=== PATIENT | female | born 1945 | race Caucasian/White ===

== ENCOUNTER 2017-12-20 18:20 | Observation (INO) | payer OTHER ==
[~2017-12-20] VITALS: Ht 162.6 cm; Wt 64.9 kg
[2017-12-20] VITALS (16 sets, daily range): BP systolic 123–175; BP diastolic 68–83; PULSE 60–84; RESP 16–20; TEMP 97.4; O2SAT 93–100
[~2017-12-20 18:20] MED LIST: AMLO10 PO; AMLO5TAB96 PO; ASPI325T PO; COZA50TA PO; FLUO40CA PO; OMEP20TA PO; PRAV40 PO; Z.0.WALKERFRONT; ZOLP1TAB32 PO
--- NOTE | 2017-12-20 18:44 | PD ---
HPI Chief Complaint: Chest Pain Time Seen by Provider: 18:27 Travel History International Travel<30 days: Yes Contact w/Intl Traveler<30days: Yes Name of Country Traveled to: [place] Traveled to known affect area: Yes History of Present Illness HPI 72yo F with PMH of HTN here with c/o chest pain that started yesterday. Said she was sitting in front of computer when she had left sided chest pain that was associated with diaphoresis and dizziness. Said she felt to lay on the couch since she was feeling dizzy and passed out on the couch for a little bit. Said she went to sleep and woke up fine with no pain. Then at 5:30pm today, she again started having left sided chest pain that radiates to proximal left arm so decided to come. This time she did not have diaphoresis or dizziness. Denies any sob, fever, cough, n/v, abdominal pain, focal weakness or numbness. Pt had she had a cardiac cath many years ago and never had a stent. Has not had chest pain for years and does not have active directory specialist or recent stress test. PFSH Past Medical History Arthritis: Yes Anxiety: Yes Depression: Yes Cancer: No Cardiovascular Problems: Yes Diabetes: No Endocrine: No Gastrointestinal Disorders: Yes (GERD, REFLUX) GERD: Yes Genitourinary: No Hepatitis: No Hiatal Hernia: Yes Hypertension: Yes Immune Disorder: No Musculoskeletal: No Neurologic: No Psychiatric: No Reproductive: No Respiratory: Yes (SPOT ON HA. LUNG) Thyroid Disease: No Tetanus Vaccination: > 5 Years ?: Not Past Surgical History Abdominal Surgery: Yes (APPENDECTOMY) AICD: No Eye Surgery: Yes (DETACHED RETINA SX X6) Gynecologic Surgery: Yes (ECTOPIC PREG, ABD. HYSTERECTOMY,) Hysterectomy: Yes Joint Replacement: No Oral Surgery: Yes (TONSILLECTOMY) Pacemaker: No Other Surgery: Yes (RIGHT SHOULDER REPLACEMENT) Social History Alcohol Use: Yes (SOCIAL) Tobacco Use: No Substance Use: Yes (MEDICAL MARIJUANA) Allergies-Medications (Allergen,Severity, Reaction): Coded Allergies: latex (Unverified Allergy, Intermediate, REDNESS, ITCHING, RASH,BURNING, ) codeine (Unverified Adverse Reaction, Severe, SEVERE NAUSEA, 04/20/17) Reported Meds & Prescriptions Reported Meds & Active Scripts Active Review of Systems Except as stated in HPI: all other systems reviewed are Neg Physical Exam Narrative GENERAL: 72yo F in mild distress. SKIN: Focused skin assessment warm/dry. HEAD: Atraumatic. Normocephalic. EYES: Pupils equal and round. No scleral icterus. No injection or drainage. ENT: No nasal bleeding or discharge. Mucous membranes pink and moist. NECK: Trachea midline. No JVD. CARDIOVASCULAR: Regular rate and rhythm. No murmur appreciated. RESPIRATORY: No accessory muscle use. Clear to auscultation. Breath sounds equal bilaterally. GASTROINTESTINAL: Abdomen soft, non-tender, nondistended. MUSCULOSKELETAL: No obvious deformities. No clubbing. No cyanosis. No edema. NEUROLOGICAL: Awake and alert. No obvious cranial nerve deficits. Motor grossly within normal limits. Normal speech. PSYCHIATRIC: Appropriate mood and affect; insight and judgment normal. Data Data Last Documented VS Vital Signs Date Time Temp Pulse Resp B/P (MAP) Pulse Ox O2 Delivery O2 Flow Rate FiO2 12/20/17 20:15 62 16 126/69 (88) 96 Room Air 12/20/17 18:22 97.4 Orders Orders Basic Metabolic Panel (Bmp) (12/20/17 18:42) Complete Blood Count With Diff (12/20/17 18:42) Magnesium (Mg) (12/20/17 18:42) Prothrombin Time / Inr (Pt) (12/20/17 18:42) Act Partial Throm Time (Ptt) (12/20/17 18:42) Troponin I (12/20/17 18:42) Chest, Single Ap (12/20/17 18:42) Aspirin (Aspirin) (12/20/17 18:45) Nitroglycerin Sl (Nitrostat Sl) (12/20/17 18:45) Place In Observation (12/20/17 20:20) Activity Bed Rest With Brp (12/20/17 20:20) Vital Signs (Adult) Q4H (12/20/17 20:20) Cardiac Rhythm .As Directed (12/20/17 20:20) Notify Dr: Other .PRN (12/20/17 20:20) Notify Parameters (12/20/17 20:20) Resp Oxygen Nasal Cannula (12/20/17 ) Ckmb (Isoenzyme) Profile (12/20/17 22:00) Ckmb (Isoenzyme) Profile (12/21/17 01:00) Troponin I (12/20/17 22:00) Troponin I (12/21/17 01:00) Electrocardiogram (12/20/17 22:00) Electrocardiogram (12/21/17 01:00) ^ Obtain (12/20/17 20:20) Sodium Chlor 0.9% 1000 Ml Inj (Ns 1000 M (12/20/17 20:20) Sodium Chloride 0.9% Flush (Ns Flush) (12/20/17 20:30) Sodium Chloride 0.9% Flush (Ns Flush) (12/20/17 21:00) Acetaminophen (Tylenol) (12/20/17 20:30) Ondansetron Inj (Zofran Inj) (12/20/17 20:30) Lumber Piler / Telemetry SABRINA.Q8H (12/20/17 20:20) Heparin Inj (Heparin Inj) (12/20/17 21:00) Admit Order (Ed Use Only) (12/20/17 20:28) Us Carotid Arteries Comp Bilat (12/21/17 ) Echo 2d Comp With Doppler (12/21/17 ) Labs Laboratory Tests Test 12/20/17 18:45 White Blood Count 6.9 TH/MM3 Red Blood Count 3.87 MIL/MM3 Hemoglobin 11.5 GM/DL Hematocrit 35.4 % Mean Corpuscular Volume 91.4 FL Mean Corpuscular Hemoglobin 29.6 PG Mean Corpuscular Hemoglobin Concent 32.3 % Red Cell Distribution Width 11.8 % Platelet Count 386 TH/MM3 Mean Platelet Volume 6.4 FL Neutrophils (%) (Auto) 53.5 % Lymphocytes (%) (Auto) 31.2 % Monocytes (%) (Auto) 12.8 % Eosinophils (%) (Auto) 2.1 % Basophils (%) (Auto) 0.4 % Neutrophils # (Auto) 3.7 TH/MM3 Lymphocytes # (Auto) 2.2 TH/MM3 Monocytes # (Auto) 0.9 TH/MM3 Eosinophils # (Auto) 0.1 TH/MM3 Basophils # (Auto) 0.0 TH/MM3 CBC Comment DIFF FINAL Differential Comment Prothrombin Time 10.7 SEC Prothromb Time International Ratio 1.1 RATIO Activated Partial Thromboplast Time 28.4 SEC Blood Urea Nitrogen 11 MG/DL Creatinine 0.78 MG/DL Random Glucose 111 MG/DL Calcium Level 8.6 MG/DL Magnesium Level 2.5 MG/DL Sodium Level 127 MEQ/L Potassium Level 3.5 MEQ/L Chloride Level 93 MEQ/L Carbon Dioxide Level 26.4 MEQ/L Anion Gap 8 MEQ/L Estimat Glomerular Filtration Rate 72 ML/MIN Troponin I LESS THAN 0.02 NG/ML MDM Medical Decision Making Medical Screen Exam Complete: Yes Emergency Medical Condition: Yes Interpretation(s) EKG: NSR 72bpm. LAD. Poor baseline. ST depression II, V3, V6. Differential Diagnosis ACS vs. arrhythmia vs. valvular disease Narrative Course 72yo F with c/o left sided chest pain that is concerning for ACS. Pt also had an episode of syncope yesterday. Labs reviewed, no leukocytosis. Mild hyponatremia at 127, pt has had hyponatremia before, 126 in 2014. Troponin negative. CXR negative. Pt also found to have old ecchymoses in left elbow and said she fell a week ago and had xray and been evaluated by primary care. Pt given aspirin and sublingual nitro which helped with chest pain. Discussed with Dr. Vanessa and accepted to her service for chest pain and syncope work up. Diagnosis Primary Impression: Chest pain Qualified Codes: R07.9 - Chest pain, unspecified Additional Impression: Syncope Qualified Codes: R55 - Syncope and collapse Admitting Information Admitting Physician Requests: Elmira Whitley DO Dec 20, 2017 18:44
[2017-12-20] MEDS ORDERED: ASPIRIN 325 MG TAB PO ONE (18:45)
[2017-12-20 18:53] LABS: AUTOMATED NEUTROPHIL # 3.7 TH/MM3 (1.8-7.7); BASOPHIL % 0.4 % (0.0-2.0); EOSINOPHIL # 0.1 TH/MM3 (0-0.4); EOSINOPHIL % 2.1 % (0.0-4.0); HEMATOCRIT 35.4 % (35.0-46.0); HEMOGLOBIN 11.5 GM/DL (11.6-15.3); LYMPH % 31.2 % (9.0-44.0); LYMPHOCYTE # 2.2 TH/MM3 (1.0-4.8); MEAN CELL VOLUME 91.4 FL (80.0-100.0); MEAN CORPUSCULAR HEMOGLOBIN 29.6 PG (27.0-34.0); MEAN CORPUSCULAR HGB CONC 32.3 % (32.0-36.0); MEAN PLATELET VOLUME 6.4 FL (7.0-11.0); MONO % 12.8 % (0.0-8.0); MONOCYTE # 0.9 TH/MM3 (0-0.9); NEUT % 53.5 % (16.0-70.0); PLATELET COUNT 386 TH/MM3 (150-450); RED BLOOD COUNT 3.87 MIL/MM3 (4.00-5.30); RED CELL DISTRIBUTION WIDTH 11.8 % (11.6-17.2); WHITE BLOOD COUNT 6.9 TH/MM3 (4.0-11.0)
[2017-12-20] MEDS: NITROGLYCERIN 0.4 MG SL 25 TABS/BTL SL SCH ×2 (18:55→19:02)
[2017-12-20 19:11] LABS: CHLORIDE 93 MEQ/L (98-107); SODIUM (NA) 127 MEQ/L (136-145)
[2017-12-20 19:14] LABS: BICARBONATE 26.4 MEQ/L (21.0-32.0); BLOOD UREA NITROGEN 11 MG/DL (7-18); CALCIUM 8.6 MG/DL (8.5-10.1); GLUCOSE,RANDOM 111 MG/DL (74-106); MAGNESIUM 2.5 MG/DL (1.5-2.5)
[2017-12-20 19:17] LABS: CREATININE 0.78 MG/DL (0.50-1.00); GLOMERULAR FILTRATION RATE 72 ML/MIN (>89); INTERNATIONAL NORMALIZED RATIO 1.1 RATIO; PROTHROMBIN TIME - PATIENT 10.7 SEC (9.8-11.6)
[2017-12-20 19:22] LABS: TROPONIN I LESS THAN 0.02 NG/ML (0.02-0.05)
--- NOTE | 2017-12-20 19:45 | RADRPT ---
EXAM DATE/TIME: 12/20/2017 18:48 [facility] COMPARISON: No previous studies available for comparison. INDICATIONS : Chest pain. MEDICAL HISTORY : Hypertension. SURGICAL HISTORY : Right shoulder replacement. ENCOUNTER: Initial ACUITY: 2 days PAIN SCORE: 4/10 LOCATION: Left chest FINDINGS: A single view of the chest demonstrates the lungs to be symmetrically aerated without evidence of mas s, infiltrate or effusion. The cardiomediastinal contours are unremarkable. There appears to be poss ible calcified lymph nodes are seen in the right hilum. There is a right shoulder prosthesis.. CONCLUSION: No acute disease. Hardik Walker MD on December 20, 2017 at 19:42 Board Certified Radiologist. This report was verified electronically.
[2017-12-20] MEDS: SODIUM CHLOR 0.9% 1000 ML INJ 1,000 ML IV SCH (20:20)
[2017-12-20] MEDS ORDERED: ONDANSETRON HCL 4 MG/2 ML VIAL IV PUSH PRN (20:30)
[2017-12-20] MEDS ORDERED: ACETAMINOPHEN 500 MG CPLT PO PRN (20:30)
[2017-12-20] MEDS ORDERED: SODIUM CHLORIDE 0.9% FLUSH 10 ML FLUSH IV FLUSH PRN (20:30)
[2017-12-20] MEDS: SODIUM CHLORIDE 0.9% FLUSH 10 ML FLUSH IV FLUSH SCH (21:05)
[2017-12-20] MEDS: HEPARIN SODIUM - SQ 10,000 UNITS/ML VIAL SQ SCH (21:05)
[2017-12-20 22:43] LABS: TROPONIN I LESS THAN 0.02 NG/ML (0.02-0.05)
[2017-12-21] VITALS (8 sets, daily range): BP systolic 148–186; BP diastolic 70–94; PULSE 57–72; RESP 18–20; TEMP 96.2–97.5; O2SAT 92–97
[2017-12-21] MEDS ORDERED: FLUO40CA PO (00:12)
[2017-12-21] MEDS ORDERED: SYSTSOL15 LEFT EYE (00:12)
[2017-12-21] MEDS ORDERED: COZA25TA PO (00:12)
[2017-12-21] MEDS ORDERED: OMEP20TA93 PO (00:12)
[2017-12-21] MEDS ORDERED: AMLO5TAB2 PO (00:12)
[2017-12-21 01:50] LABS: TROPONIN I LESS THAN 0.02 NG/ML (0.02-0.05)
--- NOTE | 2017-12-21 07:46 | HHI.HP ---
[facility] Service [facility] Primary Care Physician Faustino Fowler MD Admission Diagnosis Chest pain, syncope Diagnoses: Chief Complaint: Chest pain Travel History International Travel<30 Days: Yes Contact w/Intl Traveler <30 Da: Yes Name of Country Traveled to: [place] Traveled to Known Affected Are: Yes History of Present Illness This is a 72-year-old female patient with a known medical history of hypertension, GERD, arthritis and gastroparesis who presented to the ED with complaints of chest pain. Supposedly patient had fallen a week ago while on vacation she does have a history of right eye blindness and problems with depth perception in her left eye states she has trouble balancing. She did state that she fell on her left shoulder and since then has been sore in her left chest and left arm. Patient did present to her PCP, Dr. Fowler, and underwent imaging of her left shoulder and left arm and has not been told the results yet. Supposedly 2 days ago she was sitting at her computer when she developed left-sided chest pain rated a 7 out of 10 on pain scale, was throbbing in nature , pain worsened with activity, does admit to associated diaphoresis and lightheadedness and nausea, denies any vomiting or shortness of breath. Patient states that the pain was relieved with her medical marijuana and rest. Patient states that after resting she continued to have the left-sided chest pain therefore she presented to the ED. She denies any recent illness including fever, chills, cough, abdominal pain, vomiting, diarrhea or dysuria. She does states she followed with Dr. Corral roughly 3 years ago for frequent fainting, at that time patient did have an echocardiogram which was reportedly negative. Patient does state she underwent a cardiac cath 20 years ago for chest pain and at that time a "shadow" was seen and she was told that everything was fine at the time but likely would have problems roughly 20 years later. Denies any recent stress test. Patient follows with pulmonology, Dr. Andrade, for bilateral spots in her lungs. Patient denies any significant family medical history of heart disease. Denies any tobacco abuse. 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), DENIES: Blurred vision, Diplopia Respiratory: DENIES: Cough, Sputum production, Shortness of breath Cardiovascular: COMPLAINS OF: Chest pain, Palpitations Gastrointestinal: COMPLAINS OF: Nausea, DENIES: Abdominal pain, Black stools, Bloody stools, Constipation, Diarrhea, Vomiting Musculoskeletal: DENIES: Joint pain Psychiatric: COMPLAINS OF: Anxiety Except as stated in HPI: all other systems reviewed are Neg Past Family Social History Past Medical History Arthritis on medical marijuana Anxiety and depression GERD Hypertension Gastroparesis Past Surgical History Appendectomy Detached retina surgery 6 on bilateral eyes History of ectopic Hysterectomy Tonsillectomy Right shoulder replacement Reported Medications Active Reported Systane Balance Episcopalian Opth Drops (Propylene Glycol Opth Drops) 0.6% Soln 1 Drop LEFT EYE PRN PRN Fluoxetine (Fluoxetine HCl) 40 Mg Cap 40 Cap PO DAILY Omeprazole 20 Mg Tab 20 Mg PO DAILY Cozaar (Losartan Potassium) 25 Mg Tab 25 Mg PO DAILY Amlodipine (Amlodipine Besylate) 5 Mg Tab 5 Mg PO DAILY Allergies: Coded Allergies: latex (Unverified Allergy, Intermediate, REDNESS, ITCHING, RASH,BURNING, ) codeine (Unverified Adverse Reaction, Severe, SEVERE NAUSEA, 04/20/17) Active Ordered Medications Current Medications Medications (Trade) Dose Ordered Sig/Liz Route Start Time Stop Time Status Last Admin Sodium Chloride 1,000 ml @ 70 mls/hr [id number] IV 12/20/17 20:20 12/20/17 20:20 (NS Flush) 2 ml UNSCH PRN IV FLUSH 12/20/17 20:30 (NS Flush) 2 ml BID IV FLUSH 12/20/17 21:00 12/20/17 21:05 (Tylenol) 500 mg Q4H PRN PO 12/20/17 20:30 12/21/17 01:13 (Zofran Inj) 4 mg Q6H PRN IV PUSH 12/20/17 20:30 (Heparin Inj) 5,000 units Q12H SQ 12/20/17 21:00 12/20/17 21:05 (Pneumovax-23 Inj) 25 mcg ONCE ONCE IM 12/21/17 09:00 12/21/17 09:01 (Flu (Quadrivalent) Vaccine Inj) 0.5 ml ONCE ONCE IM 12/21/17 09:00 12/21/17 09:01 (Toradol Inj) 30 mg ONCE ONCE IV PUSH 12/21/17 09:00 12/21/17 09:01 (Norvasc) 5 mg DAILY PO 12/21/17 09:00 (PROzac) 40 mg DAILY PO 12/21/17 09:00 (Cozaar) 25 mg DAILY PO 12/21/17 09:00 (Protonix) 20 mg DAILY PO 12/21/17 09:00 (Tears Naturale Opth Soln) 1 drop UNSCH PRN LEFT EYE 12/21/17 09:00 Family History Both maternal and paternal medical history significant for leukemia. Mother did have hypertension. Social History Patient denies any tobacco abuse. Does admit to social alcohol use. Has been prescribed medical marijuana for arthritis, muscle spasms and anxiety. Denies any other illicit drug use. Physical Exam Vital Signs Vital Signs Date Time Temp Pulse Resp B/P (MAP) Pulse Ox O2 Delivery O2 Flow Rate FiO2 12/21/17 04:00 96.8 60 20 161/70 (100) 97 12/21/17 00:30 57 12/21/17 00:30 96.2 60 20 186/86 (119) 97 12/21/17 00:25 60 16 156/81 (106) 96 12/20/17 23:03 62 16 149/75 (99) 96 Room Air 12/20/17 22:15 62 16 134/70 (91) 97 Room Air 12/20/17 21:45 60 16 145/78 (100) 96 Room Air 12/20/17 21:15 62 16 127/68 (87) 96 Room Air 12/20/17 20:49 98 21 12/20/17 20:45 62 16 131/70 (90) 96 Room Air 12/20/17 20:15 62 16 126/69 (88) 96 Room Air 12/20/17 19:52 60 16 132/68 (89) 96 Room Air 12/20/17 19:37 60 16 132/69 (90) 97 Room Air 12/20/17 19:22 73 16 148/77 (100) 94 Room Air 4/16/18 19:10 80 16 123/73 (90) 93 Room Air 12/20/17 19:07 84 16 123/73 (90) 93 Room Air 12/20/17 19:07 16 12/20/17 19:01 78 16 123/82 (96) 94 Room Air 12/20/17 19:00 72 16 94 12/20/17 19:00 73 16 148/77 (100) 94 Room Air 12/20/17 18:55 68 16 157/80 (105) 97 Room Air 12/20/17 18:22 97.4 74 20 175/83 (113) 100 Physical Exam GENERAL: Well-developed, well-nourished patient in [facility]. SKIN: Warm and dry. No rash. Left forearm bruising from fall. HEAD: Normocephalic. Atraumatic. EYES: Pupils equal and round. No scleral icterus. No injection or drainage. Right eye hazy numbness. ENT: No nasal bleeding or discharge. Mucous membranes pink and moist. NECK: Supple. Trachea midline. CARDIOVASCULAR: Regular rate and rhythm. S1, S2 noted. No murmur appreciated. Significant pain to left-sided palpation and pressure. RESPIRATORY: No accessory muscle use. Clear to auscultation. Breath sounds equal bilaterally. GASTROINTESTINAL: Abdomen soft, non-tender, nondistended. Normoactive bowel sounds x4. MUSCULOSKELETAL: No obvious deformities. Extremities without clubbing, cyanosis , or edema. NEUROLOGICAL: Awake and alert. No obvious cranial nerve deficits. Motor grossly within normal limits. 5/5 muscle strength in bilateral upper and lower extremities. Normal speech. PSYCHIATRIC: Appropriate mood and affect; insight and judgment normal. Laboratory Laboratory Tests Test 12/20/17 18:45 12/20/17 22:15 12/21/17 01:25 White Blood Count 6.9 Red Blood Count 3.87 Hemoglobin 11.5 Hematocrit 35.4 Mean Corpuscular Volume 91.4 Mean Corpuscular Hemoglobin 29.6 Mean Corpuscular Hemoglobin Concent 32.3 Red Cell Distribution Width 11.8 Platelet Count 386 Mean Platelet Volume 6.4 Neutrophils (%) (Auto) 53.5 Lymphocytes (%) (Auto) 31.2 Monocytes (%) (Auto) 12.8 Eosinophils (%) (Auto) 2.1 Basophils (%) (Auto) 0.4 Neutrophils # (Auto) 3.7 Lymphocytes # (Auto) 2.2 Monocytes # (Auto) 0.9 Eosinophils # (Auto) 0.1 Basophils # (Auto) 0.0 CBC Comment DIFF FINAL Differential Comment Prothrombin Time 10.7 Prothromb Time International Ratio 1.1 Activated Partial Thromboplast Time 28.4 Blood Urea Nitrogen 11 Creatinine 0.78 Random Glucose 111 Calcium Level 8.6 Magnesium Level 2.5 Sodium Level 127 Potassium Level 3.5 Chloride Level 93 Carbon Dioxide Level 26.4 Anion Gap 8 Estimat Glomerular Filtration Rate 72 Troponin I LESS THAN 0.02 LESS THAN 0.02 LESS THAN 0.02 Total Creatine Kinase 64 62 Result Diagram: 12/20/17184412/20/171844 Imaging Last Impressions Chest X-Ray 12/20/171841 Signed Impressions: Service Date/Time: Wednesday, December 20, 2017 18:48 - CONCLUSION: No acute disease. Hardik Walker MD Septic Shock Reassessment Septic shock perfusion: reassessment completed Caprini VTE Risk Assessment Caprini VTE Risk Assessment: Mod/High Risk (score >= 2) Caprini Risk Assessment Model Point Value = 1 Point Value = 2 Point Value = 3 Point Value = 5 Age 41-60 Minor surgery BMI > 25 kg/m2 Swollen legs Varicose veins or History of unexplained or recurrent spontaneous Oral contraceptives or hormone replacement Sepsis (< 1 month) Serious lung disease, including pneumonia (< 1 month) Abnormal pulmonary function Acute myocardial infarction Congestive heart failure (< 1 month) History of inflammatory bowel disease Medical patient at bed rest Age 61-74 Arthroscopic surgery Major open surgery (> 45 min) Laparoscopic surgery (> 45 min) Malignancy Confined to bed (> 72 hours) Immobilizing plaster cast Central venous access Age >= 75 History of VTE Family history of VTE Factor V Leiden Prothrombin [id number] Lupus anticoagulant Anticardiolipin antibodies Elevated serum homocysteine Heparin-induced thrombocytopenia Other congenital or acquired thrombophilia Stroke (< 1 month) Elective arthroplasty Hip, pelvis, or leg fracture Acute spinal cord injury (< 1 month) Prophylaxis Regimen Total Risk Factor Score Risk Level Prophylaxis Regimen 0-1 Low Early ambulation 2 Moderate Order ONE of the following: *Sequential Compression Device (SCD) *Heparin 5000 units SQ BID 3-4 Higher Order ONE of the following medications: *Heparin 5000 units SQ TID *Enoxaparin/Lovenox 40 mg SQ daily (WT < 150 kg, CrCl > 30 mL/min) *Enoxaparin/Lovenox 30 mg SQ daily (WT < 150 kg, CrCl > 10-29 mL/min) *Enoxaparin/Lovenox 30 mg SQ BID (WT < 150 kg, CrCl > 30 mL/min) AND/OR *Sequential Compression Device (SCD) 5 or more Highest Order ONE of the following medications: *Heparin 5000 units SQ TID (Preferred with Epidurals) *Enoxaparin/Lovenox 40 mg SQ daily (WT < 150 kg, CrCl > 30 mL/min) *Enoxaparin/Lovenox 30 mg SQ daily (WT < 150 kg, CrCl > 10-29 mL/min) *Enoxaparin/Lovenox 30 mg SQ BID (WT < 150 kg, CrCl > 30 mL/min) AND *Sequential Compression Device (SCD) Assessment and Plan Problem List: (1) Chest pain ICD Code: R07.9 - Chest pain, unspecified Status: Acute Plan: Patient has been admitted to the chest pain center for observation. Serial EKGs and serial troponins have been ordered for ruling out ACS purposes. Serial troponins are flat. EKG reviewed showing sinus bradycardia rhythm with controlled heart rate, no ST changes to indicate ischemia. Chest x-ray reviewed which is negative for any cardiopulmonary events. Patient placed on cardiac telemetry, monitor for any arrhythmias. No reports of any acute events overnight. Pain control with [place] p.o. and Toradol. Zofran available for any nausea. Supplemental O2 as needed, patient is comfortable on room air. Patient with fall last week, an echocardiogram has been ordered, pending. Await results. Added ultrasound also ordered and pending. Patient will undergo a cardiac nuclear stress test to further rule out any ischemia. Further treatment plan and hospitalization will depend on nuclear imaging results. Patient is stable at this time and agreeable to the plan. (2) Near syncope ICD Code: R55 - Syncope and collapse Plan: Patient reports multiple falls at home, with one near syncopal episode prior to presentation. PT eval appreciated, recommendations for possible rehab upon discharge. It was noted that patient has right-sided weakness especially in her lower extremity. Will obtain head CT to rule out for any ischemia/TIA/CVA. Carotid ultrasounds performed and reviewed showing no significant stenosis. Awaiting echocardiogram. Will obtain orthostatics. Follow. (3) Left shoulder pain ICD Code: M25.512 - Pain in left shoulder Plan: Pain is likely secondary to fall 1 week ago. Patient did have imaging done last at PCP office, Dr. Fowler, records have been requested and awaiting reports. Until then patient has been given Toradol. Assess response. Supportive care. (4) HTN (hypertension) ICD Code: I10 - Essential (primary) hypertension Status: Chronic Plan: We will continue home medications. Monitor blood pressure trends. Stable at this time. (5) Hyponatremia ICD Code: E87.1 - Hypo-osmolality and hyponatremia Plan: Sodium 127 on presentation. BMP pending for this morning. We will continue to monitor. Continue IV fluids. Problem Qualifiers (1) Chest pain: Qualified Codes: R07.9 - Chest pain, unspecified Kadi Wolfe Dec 21, 2017 07:46
[2017-12-21] MEDS: amLODIPine BESYLATE 5 MG TAB PO SCH (08:30)
[2017-12-21] MEDS: FLUoxetine HCL 20 MG CAP PO SCH (08:30)
[2017-12-21] MEDS: HEPARIN SODIUM - SQ 10,000 UNITS/ML VIAL SQ SCH ×2 (08:30→21:53)
[2017-12-21] MEDS: LOSARTAN 25 MG TAB PO SCH (08:30)
[2017-12-21] MEDS: PANTOPRAZOLE SOD 20 MG DELAYED RELEASE TAB PO SCH (08:30)
[2017-12-21] MEDS: SODIUM CHLORIDE 0.9% FLUSH 10 ML FLUSH IV FLUSH SCH ×2 (08:32→21:44)
[2017-12-21] MEDS ORDERED: ACETAMINOPHEN/HYDROcodone 325 MG/5 MG TAB PO PRN ×2 (09:00)
[2017-12-21] MEDS ORDERED: PNEUMOCOCCAL POLYVALENT INJ 25 MCG/0.5 ML SYR IM ONE (09:00)
[2017-12-21] MEDS ORDERED: KETOROLAC TROMETHAMINE 30 MG/ML (IVP) VIAL IV PUSH ONE (09:00)
[2017-12-21] MEDS ORDERED: ARTIFICIAL TEARS OPTH SOLN 15 ML BTL LEFT EYE PRN (09:00)
[2017-12-21] MEDS ORDERED: INFLUENZA VIRUS VACCINE (QUADRIVALENT) 0.5 ML SYR IM ONE (09:00)
[2017-12-21] MEDS ORDERED: REGADENOSON INJ 0.4 MG/5 ML SYR IV ONE (09:16)
--- NOTE | 2017-12-21 09:25 | RADRPT ---
EXAM DATE/TIME: 12/21/2017 08:40 [facility] COMPARISON: No previous studies available for comparison. INDICATIONS : Syncope. MEDICAL HISTORY : Hypertension. Hiatal hernia. Ectopic . Arthritis. Depression. Anxiety. SURGICAL HISTORY : Tonsillectomy. Appendectomy. Hysterectomy. Detached retina surgery x6. Right shoulder replacement. ENCOUNTER: Initial ACUITY: 1 day PAIN SCORE: 0/10 LOCATION: Bilateral neck PEAK SYSTOLIC VELOCITIES (cm/sec): ICA/CCA RATIO: Right: 1.3 Left: 0.92 ICA: Right: 123 Left: 103 CCA: Right: 93 Left: 111 ECA: Right: 80 Left: 73 VERTEBRAL: Right: 55 antegrade Left: 107 antegrade Elevated flow velocities and ICA/CCA ratios have been found to correlate with increased degrees of vessel stenosis, calculated as percentage of diameter relative to a normal segment of distal ICA/CCA FINDINGS: RIGHT CAROTID: No significant stenosis is visualized. Mild scattered plaque. The waveforms are within normal limits . LEFT CAROTID: No significant stenosis is visualized. Mild scattered plaque. The waveforms are within normal limits . VERTEBRAL ARTERIES: Antegrade flow is seen in both vertebral arteries. MISCELLANEOUS: None. CONCLUSION: No hemodynamically significant stenosis in either carotid artery. Grant Hernandez MD on December 21, 2017 at 9:21 Board Certified Radiologist. This report was verified electronically.
[2017-12-21 09:53] LABS: CALCIUM 8.8 MG/DL (8.5-10.1)
[2017-12-21 09:57] LABS: CREATININE 0.49 MG/DL (0.50-1.00)
[2017-12-21 10:15] LABS: BICARBONATE 24.3 MEQ/L (21.0-32.0)
[2017-12-21] MEDS: SODIUM CHLOR 0.9% 1000 ML INJ 1,000 ML IV SCH ×2 (10:36→13:35)
[2017-12-21] MEDS: cloNIDine HCL 0.1 MG TAB PO PRN (12:59)
--- NOTE | 2017-12-21 15:17 | EKG ---
Date Performed: 12/20/2017 Time Performed: 22:08:53 PTAGE: 72 years EKG: Sinus rhythm NORMAL ECG Since the PREVIOUS TRACING , no significant change noted PREVIOUS TRACIN12/20/2017 18.23 DOCTOR: Shoiab Joseph Interpretating Date/Time 12/21/2017 15:14:02
--- NOTE | 2017-12-21 15:17 | EKG ---
Date Performed: 12/20/2017 Time Performed: 18:23:26 PTAGE: 72 years EKG: Sinus rhythm POSSIBLE LEFT ATRIAL ENLARGEMENT BORDERLINE LEFT AXIS DEVIATION BORDERLINE ECG Since the PREVIOUS TRACING , no significant change noted PREVIOUS TRACIN11/16/2015 10.38 DOCTOR: Shoaib Joseph Interpretating Date/Time 12/21/2017 15:13:52
--- NOTE | 2017-12-21 15:18 | EKG ---
Date Performed: 12/21/2017 Time Performed: 01:10:06 PTAGE: 72 years EKG: SINUS BRADYCARDIA BORDERLINE ECG Since the PREVIOUS TRACING , no significant change noted PREVIOUS TRACIN12/20/2017 22.08 DOCTOR: Shoaib Joseph Interpretating Date/Time 12/21/2017 15:14:12
--- NOTE | 2017-12-21 15:23 | RADRPT ---
EXAM DATE/TIME: 12/21/2017 08:52 [facility] COMPARISON: No previous studies available for comparison. INDICATIONS : Left sided chest pain radiating to left arm with dizziness and diaphoresis. Angina. DOSE: 25.4 mCi Tc99m Myoview at stress. 8.5 mCi Tc99m Myoview at rest. 0.4 mg Lexiscan STRESS SYMPTOMS: Dyspnea and headache. EJECTION FRACTION: 69% MEDICAL HISTORY : Gastroesophageal reflux disease. Hypertension. SURGICAL HISTORY : Appendectomy. Tonsillectomy. Hysterectomy. Right shoulder replacement. ENCOUNTER: Initial ACUITY: 1 day PAIN SCALE: 5/10 LOCATION: Left chest TECHNIQUE: The patient underwent pharmacologic stress with infusion of prescribed dose. Continuous ECG tracing was monitored during stress. Gated SPECT imaging was performed after stress and conventional SPECT i maging was performed at rest. The examination was performed on a SPECT/CT scanner, both attenuation and non-corrected datasets were reviewed. FINDINGS: DISTRIBUTION: The maximum perfused segment at stress is in the anterior wall. PERFUSION STUDY: The pattern of perfusion at stress is within normal limits. GATED STUDY: There is intact wall motion and thickening without hypokinetic or dyskinetic segments. CONCLUSION: 1. No evidence of fixed or reversible perfusion abnormalities. 2. Well preserved wall motion and ejection fraction. RISK CATEGORY: Low (<1% Annual Mortality Rate) Robin Marion MD on December 21, 2017 at 15:20 Board Certified Radiologist. This report was verified electronically.
--- NOTE | 2017-12-21 17:32 | RADRPT ---
EXAM DATE/TIME: 12/21/2017 17:19 [facility] COMPARISON: CT BRAIN W/O CONTRAST, November 15, 2015, 16:24. INDICATIONS : Weakness. RADIATION DOSE: 57.74 CTDIvol (mGy) MEDICAL HISTORY : Hypertension. Hiatal hernia. Ectopic . Arthritis. Depression. Anxiety. SURGICAL HISTORY : Tonsillectomy. Appendectomy. Hysterectomy. Detached retina surgery x6. Right shoulder surgery. ENCOUNTER: Initial ACUITY: 1 day PAIN SCALE: 0/10 LOCATION: cranial TECHNIQUE: Multiple contiguous axial images were obtained of the head. Using automated exposure control and adj ustment of the mA and/or kV according to patient size, radiation dose was kept as low as reasonably a chievable to obtain optimal diagnostic quality images. DICOM format image data is available electro nically for review and comparison. FINDINGS: CEREBRUM: The ventricles are normal for age. No evidence of midline shift, mass lesion, hemorrhage or acute in farction. Subcortical hypodensity within the frontal white matter is again noted. No extra-axial flui d collections are seen. POSTERIOR FOSSA: The cerebellum and brainstem are intact. The 4th ventricle is midline. The cerebellopontine angle i s unremarkable. EXTRACRANIAL: The visualized portion of the orbits is intact. SKULL: The calvaria is intact. No evidence of skull fracture. CONCLUSION: 1. Stable chronic white matter changes most characteristic of chronic microvascular ischemic disease. 2. No evidence of acute infarct, hemorrhage, mass or edema. 3. No evidence of intra-or extra-axial mass. Robin Marion MD on December 21, 2017 at 17:29 Board Certified Radiologist. This report was verified electronically.
--- NOTE | 2017-12-21 17:36 | TR ---
Date Performed: 12/21/2017 Time Performed: 09:29:11 DOCTOR: Valeria Shepherd DRUG LIST: CLINICAL HISTORY: CHEST PAIN REASON FOR TEST: Chest pain REASON FOR ENDING: OBSERVATION: CONCLUSION: COMMENTS: Lexiscan stress test was performed under standard four minute protocol. Radionuclide was injected one minute prior to ending the test. No electrocardiographic abormalities were present t o suggest ischemia. Nuclear imaging and interpretation are pending.
[2017-12-22] VITALS: BP 140/67; PULSE 53; RESP 20; TEMP 96.3; O2SAT 94
[2017-12-22 03:06] VITALS: PULSE 57
[2017-12-22 04:00] VITALS: BP 164/71; PULSE 62; RESP 20; TEMP 96.2; O2SAT 95
[2017-12-22] MEDS: SODIUM CHLOR 0.9% 1000 ML INJ 1,000 ML IV SCH (04:22)
[2017-12-22] MEDS: cloNIDine HCL 0.1 MG TAB PO PRN (06:35)
[2017-12-22 08:00] VITALS: BP 162/86; PULSE 60; RESP 19; TEMP 97.6; O2SAT 95
[2017-12-22] MEDS: SODIUM CHLORIDE 0.9% FLUSH 10 ML FLUSH IV FLUSH SCH (09:00)
[2017-12-22] MEDS: LOSARTAN 25 MG TAB PO SCH (09:35)
[2017-12-22] MEDS: FLUoxetine HCL 20 MG CAP PO SCH (09:35)
[2017-12-22] MEDS: PANTOPRAZOLE SOD 20 MG DELAYED RELEASE TAB PO SCH (09:35)
[2017-12-22] MEDS: amLODIPine BESYLATE 5 MG TAB PO SCH (09:35)
[2017-12-22] MEDS: HEPARIN SODIUM - SQ 10,000 UNITS/ML VIAL SQ SCH (09:36)
--- NOTE | 2017-12-22 10:29 | HHI.FF ---
Face to Face Verification Diagnosis: (1) Near syncope (2) Hyponatremia (3) Left shoulder pain (4) HTN (hypertension) (5) Chest pain Physical Therapy Order: Evaluate and Treat, Improve ambulation, Strength and gait training Home Health Nursing Order: Medical education Signs/symptoms of disease process Medication education-adverse effect Nursing assessment with vital signs I have seen patient Piedad Cao on 12/22/17. My clinical findings support the need for the requested home health care services because: Patient has SOB Deconditioned w/ increased weakness I certify that my clinical findings support that this patient is homebound because: Unsteady gait/balance Kadi Wolfe Dec 22, 2017 10:29
[2017-12-22 11:43] VITALS: BP 153/92; PULSE 60; RESP 20; TEMP 97.1; O2SAT 95
[2017-12-22] MEDS ORDERED: AMLO10TA2 PO (12:11)
--- NOTE | 2017-12-22 12:12 | HHI.DCPOC ---
Discharge Care Plan Diagnosis: (1) HTN (hypertension) (2) Hyponatremia (3) Chest pain (4) Left shoulder pain (5) Near syncope Goals to Promote Your Health * To prevent worsening of your condition and complications * To maintain your health at the optimal level Directions to Meet Your Goals Take your medications as prescribed Follow your dietary instruction Follow activity as directed Keep your appointments as scheduled Take your immunizations and boosters as scheduled If your symptoms worsen call your PCP, if no PCP go to Urgent Care Center or Emergency Room Smoking is Dangerous to Your Health. Avoid second hand smoke Call the 24-hour hour crisis hotline for domestic abuse at Kdai Wolfe Dec 22, 2017 12:12
[2017-12-22 12:18] LABS: BICARBONATE 25.3 MEQ/L (21.0-32.0); CREATININE 0.66 MG/DL (0.50-1.00)
--- NOTE | 2017-12-22 12:22 | HHI.DS ---
Discharge Summary Admission Date Dec 20, 2017 at 20:29 Discharge Date: Dec 22, 2017 Admitting Diagnosis Chest pain, syncope (1) Chest pain ICD Code: R07.9 - Chest pain, unspecified Status: Acute (2) Near syncope ICD Code: R55 - Syncope and collapse (3) Left shoulder pain ICD Code: M25.512 - Pain in left shoulder (4) HTN (hypertension) ICD Code: I10 - Essential (primary) hypertension Status: Chronic (5) Hyponatremia ICD Code: E87.1 - Hypo-osmolality and hyponatremia Procedures Below Brief History - From Admission This is a 72-year-old female patient with a known medical history of hypertension, GERD, arthritis and gastroparesis who presented to the ED with complaints of chest pain. Supposedly patient had fallen a week ago while on vacation she does have a history of right eye blindness and problems with depth perception in her left eye states she has trouble balancing. She did state that she fell on her left shoulder and since then has been sore in her left chest and left arm. Patient did present to her PCP, Dr. Fowler, and underwent imaging of her left shoulder and left arm and has not been told the results yet. Supposedly 2 days ago she was sitting at her computer when she developed left-sided chest pain rated a 7 out of 10 on pain scale, was throbbing in nature , pain worsened with activity, does admit to associated diaphoresis and lightheadedness and nausea, denies any vomiting or shortness of breath. Patient states that the pain was relieved with her medical marijuana and rest. Patient states that after resting she continued to have the left-sided chest pain therefore she presented to the ED. She denies any recent illness including fever, chills, cough, abdominal pain, vomiting, diarrhea or dysuria. She does states she followed with Dr. Corral roughly 3 years ago for frequent fainting, at that time patient did have an echocardiogram which was reportedly negative. Patient does state she underwent a cardiac cath 20 years ago for chest pain and at that time a "shadow" was seen and she was told that everything was fine at the time but likely would have problems roughly 20 years later. Denies any recent stress test. Patient follows with pulmonology, Dr. Andrade, for bilateral spots in her lungs. Patient denies any significant family medical history of heart disease. Denies any tobacco abuse. CBC/BMP: 12/20/17 1845 12/21/17 0900 Significant Findings Laboratory Tests Test 12/20/17 18:45 12/20/17 22:15 12/21/17 01:25 12/21/17 09:00 Red Blood Count 3.87 MIL/MM3 (4.00-5.30) Hemoglobin 11.5 GM/DL (11.6-15.3) Mean Platelet Volume 6.4 FL (7.0-11.0) Monocytes (%) (Auto) 12.8 % (0.0-8.0) Random Glucose 111 MG/DL (74-106) Sodium Level 127 MEQ/L (136-145) 132 MEQ/L (136-145) Chloride Level 93 MEQ/L (98-107) Estimat Glomerular Filtration Rate 72 ML/MIN (>89) Troponin I LESS THAN 0.02 NG/ML LESS THAN 0.02 NG/ML LESS THAN 0.02 NG/ML Creatinine 0.49 MG/DL (0.50-1.00) Test 12/22/17 09:50 Imaging Last Impressions Myocardial Perfusion Scan Nuc Med 12/21/17 0000 Signed Impressions: Service Date/Time: Thursday, December 21, 2017 08:52 - CONCLUSION: 1. No evidence of fixed or reversible perfusion abnormalities. 2. Well preserved wall motion and ejection fraction. RISK CATEGORY: Low (<1%% Annual Mortality Rate) Robin Marion MD Head CT 12/21/17 0000 Signed Impressions: Service Date/Time: Thursday, December 21, 2017 17:19 - CONCLUSION: 1. Stable chronic white matter changes most characteristic of chronic microvascular ischemic disease. 2. No evidence of acute infarct, hemorrhage, mass or edema. 3. No evidence of intra-or extra-axial mass. Robin Marion MD Carotid Artery Ultrasound 12/21/17 0000 Signed Impressions: Service Date/Time: Thursday, December 21, 2017 08:40 - CONCLUSION: No hemodynamically significant stenosis in either carotid artery. Grant Hernandez MD Chest X-Ray 4/16/18 1842 Signed Impressions: Service Date/Time: Wednesday, December 20, 2017 18:48 - CONCLUSION: No acute disease. Hardik Walker MD Pt update on day of discharge Follow up chest pain and near syncope. Patient seen and examined, lying in bed comfortably no apparent distress. Patient states she says she is improved. No dizziness or lightheadedness. Participating with PT recommends home health care. Eating well with no abdominal pain, nausea or vomiting. Head CT reviewed showing chronic white matter changes no acute disease. CVA ruled out. Hospital Course This is a 72-year-old female patient with a known medical history of hypertension, GERD, arthritis and gastroparesis who presented to the ED with complaints of chest pain. Patient was admitted to the chest pain center for observation. Serial EKGs and serial troponins have been ordered for ruling out ACS purposes. Serial troponins are flat. EKG showing sinus bradycardia rhythm with controlled heart rate, no ST changes to indicate ischemia. Chest x-ray which is negative for any cardiopulmonary events. No reports of any acute events on telemetry. Nuclear stress test done showing EF 69% with no ischemia. Pain control with Harper p.o. and Toradol. Patient with fall last week. ECHO pending and will follow upon discharge. Await results. Added ultrasound also ordered and pending. Patient reports multiple falls at home, with one near syncopal episode prior to presentation. PT eval appreciated, recommendations for [facility]. It was noted that patient has right-sided weakness especially in her lower extremity. Head CT showing no acute disease, stable chronic white matter changes. Carotid ultrasounds performed and reviewed showing no significant stenosis. Orthostatics negative. Patient did have imaging done last at PCP office, Dr. Fowler, of her left shoulder and arm, records reviewed and images negative for any acute event. Was given Toradol with relief of pain. Hyponatremia improved to 133 on discharge. Given IVF. Pt Condition on Discharge: Stable Discharge Disposition: Disch w/ Home Health Serv Discharge Time: > 30 minutes Discharge Instructions DIET: Follow Instructions for: Heart Healthy Diet Speech Therapy-Diet Recommends: Regular Activities you can perform: Regular-No Restrictions Follow up Referrals: PCP Follow-up - 1 Week New Medications: Amlodipine (Amlodipine) 10 Mg Tab 10 MG PO DAILY for Blood Pressure Management for 30 Days, #30 TAB 0 Refills Continued Medications: Fluoxetine (Fluoxetine) 40 Mg Cap 40 CAP PO DAILY, #30 CAP 0 Refills Losartan (Cozaar) 25 Mg Tab 25 MG PO DAILY for Blood Pressure Management, #30 TAB 0 Refills Omeprazole (Omeprazole) 20 Mg Tab 20 MG PO DAILY, #30 TAB 0 Refills Propylene Glycol Opth Drops (Systane Balance Yazidism Opth Drops) 0.6% Soln 1 DROP LEFT EYE PRN PRN for DRY EYE, BOTTLE 0 Refills Discontinued Medications: Amlodipine (Amlodipine) 5 Mg Tab 5 MG PO DAILY for Blood Pressure Management, #30 TAB 0 Refills Kadi Wolfe Dec 22, 2017 12:22
--- NOTE | 2017-12-22 18:03 | ECHRPT ---
Indication: Syncope and collapse CONCLUSIONS The left ventricular systolic function is normal with an estimated ejection fraction in the range of 55-60%. Wall thickness is normal. Normal left ventricular size. Mild mitral valve regurgitation. There is mild tricuspid valve regurgitation. The estimated pulmonary arterial pressure is 35 mmHg. BP: / HR: Rhythm: Sinus MEASUREMENTS (Male / Female) Normal Values Technical Quality:Good 2D ECHO LV Diastolic Diameter PLAX 4.0 cm 4.2 - 5.9 / 3.9 - 5.3 cm LV Systolic Diameter PLAX 3.0 cm IVS Diastolic Thickness 1.1 cm 0.6 - 1.0 / 0.6 - 0.9 cm LVPW Diastolic Thickness 1.1 cm 0.6 - 1.0 / 0.6 - 0.9 cm LV Relative Wall Thickness 0.5 LVOT Diameter 2.1 cm M-MODE Aortic Root Diameter MM 3.7 cm LA Systolic Diameter MM 3.0 cm LA Ao Ratio MM 0.8 AV Cusp Separation MM 2.1 cm DOPPLER AV Peak Velocity 142.0 cm/s AV Peak Gradient 8.1 mmHg LVOT Peak Velocity 80.0 cm/s LVOT Peak Gradient 2.6 mmHg AV Area Cont Eq pk 2.0 cm MR Peak Velocity 321.0 cm/s MR Peak Gradient 41.2 mmHg Mitral E Point Velocity 77.0 cm/s Mitral A Point Velocity 123.0 cm/s Mitral E to A Ratio 0.6 LV E' Lateral Velocity 10.0 cm/s Mitral E to LV E' Lateral Ratio 7.7 LV E' Septal Velocity 4.9 cm/s Mitral E to LV E' Septal Ratio 15.8 TR Peak Velocity 248.0 cm/s TR Peak Gradient 24.6 mmHg Right Atrial Pressure 10.0 mmHg Pulmonary Artery Systolic Pressu 34.6 mmHg Right Ventricular Systolic Press 34.6 mmHg PV Peak Velocity 71.9 cm/s PV Peak Gradient 2.1 mmHg FINDINGS LEFT VENTRICLE The left ventricular systolic function is normal with an estimated ejection fraction in the range of 55-60%. Wall thickness is normal. Normal left ventricular size. RIGHT VENTRICLE Normal right ventricular size and systolic function. LEFT ATRIUM The left atrial size is normal. RIGHT ATRIUM The right atrial size is normal. ATRIAL SEPTUM Normal atrial septal thickness without atrial level shunting by limited color doppler interrogation. AORTA The aortic root and proximal ascending aorta are normal in size on limited imaging. MITRAL VALVE Mild mitral valve regurgitation. AORTIC VALVE Trileaflet aortic valve. No aortic valve stenosis or regurgitation. TRICUSPID VALVE There is mild tricuspid valve regurgitation. The estimated pulmonary arterial pressure is 34.6 mmHg. PULMONARY VALVE No pulmonary valve regurgitation or stenosis. VESSELS The inferior vena cava is normal in size. PERICARDIUM No pericardial effusion. Samia Turner MD, FACC (Electronically Signed) Final Date:22 December 2017 18:02
== END 2017-12-22 13:46 | disposition home health service (06) ==
LOC: PHED 18:20 → PHEDA 20:29 → PH3B 12-21 00:21
PROVIDERS: ADMIT Hospitalist; ATTEND Hospitalist
DX: R07.89 Other chest pain (principal); R00.1 Bradycardia, unspecified; R55 Syncope and collapse; R42 Dizziness and giddiness; R11.0 Nausea; R61 Generalized hyperhidrosis; M25.512 Pain in left shoulder; I10 Essential (primary) hypertension; E87.1 Hypo-osmolality and hyponatremia; K21.9 Gastro-esophageal reflux disease without esophagitis; K31.84 Gastroparesis; H54.61 Unqualified visual loss, right eye, normal vision left eye; F41.9 Anxiety disorder, unspecified; F32.9 Major depressive disorder, single episode, unspecified; M19.90 Unspecified osteoarthritis, unspecified site; R29.6 Repeated falls; Z79.899 Other long term (current) drug therapy
CPT/HCPCS: 70450; 71045; 78452; 80048; 82550; 83735; 84484; 85025; 85610; 85730; 93005; 93017; 93306; 93880; 96360; 96361; 96372; 97110; 97116; 97162; 99285; A9502; G0378; G8987; G8988; J1644; J1885; J2785; J7030